=== PATIENT | male | born 1955 | race Caucasian/White ===

== ENCOUNTER 2017-09-06 14:45 | Outpatient (RCR) | payer BC ==
[~2017-09-06 14:45] MED LIST: ALEVE 220MG220 MG PO; ALLOPURINOL300 MG PO; CIPRO 500MG TA500 MG PO; IMITREX25 MG PO; LEVAQUIN 5500 MG/TAB PO; LIPITOR20 MG PO; LORTAB 7.5/5001 TAB PO; METRONIDAZOLE500 MG PO; PRILOSEC 20MG20 MG PO; TYLENOL 500MG500 MG PO
== END 2017-09-19 10:00 | disposition home or self-care (01) ==
LOC: WSPT 14:45
DX: Z47.89 Encounter for other orthopedic aftercare (principal); Z98.890 Other specified postprocedural states
CPT/HCPCS: G0283-GP